=== PATIENT | male | born 1990 | race Asian ===

== ENCOUNTER 2021-04-03 04:05 | Outpatient (CLI) | payer OTHER, SELFPAY ==
[2021-04-03 11:08] LABS: ALT 28 U/L (16-63); AST 29 U/L (15-37); Albumin 4.8 g/dL (3.4-5.0); Alkaline Phosphatase 92 U/L (46-116); Anion Gap 7.7 mmol/L (3-11); BUN 14 mg/dL (7-18); Bilirubin, Total 1.3 mg/dL (0.2-1.0); CO2 30.3 mmol/L (21.0-32.0); CREATININE 1.1 mg/dL (0.70-1.30); Calcium 9.6 mg/dL (8.5-10.1); Calculated LDL 125 mg/dL (<100); Chloride 104 mmol/L (98-107); Cholesterol 215 mg/dL (<200); Glucose 97 mg/dL (74-106); HDL Cholesterol 39 mg/dL (40-60); Potassium 4.4 mmol/L (3.5-5.1); Sodium 142 mmol/L (136-145); Total Protein 8.2 g/dL (6.4-8.2); Triglyceride 255 mg/dL (<150)
== END 2021-04-03 04:06 | disposition home or self-care (01) ==
LOC: LBO 04:05
PROVIDERS: PCP Student in an Organized Health Care Education/Training Program; Visit Provider Student in an Organized Health Care Education/Training Program
DX: I10 Essential (primary) hypertension (principal); Z13.220 Encounter for screening for lipoid disorders
CPT/HCPCS: 36415; 80053; 80061

== ENCOUNTER 2021-08-24 02:48 | Outpatient (REF) | payer SELFPAY ==
[2021-08-25 13:06] LABS: Measles IgG Antibody Positive (See Note); Mumps Antibody IgG Negative (See Note); Rubella IgG Ab (UVM) Positive (See Note); Varicella IgG Antibody Negative (See Note)
== END 2021-08-24 02:49 | disposition home or self-care (01) ==
LOC: LBO 02:48
PROVIDERS: PCP Student in an Organized Health Care Education/Training Program; Visit Provider Student in an Organized Health Care Education/Training Program
DX: Z02.89 Encounter for other administrative examinations (principal)
CPT/HCPCS: 36415; 86787; 86735; 86762; 86765

== ENCOUNTER 2021-09-10 02:18 | Outpatient (CLI) | payer OTHER, SELFPAY ==
[2021-09-11 12:55] LABS: Syphilis Serology (RPR) Negative (Negative)
[2021-09-11 15:21] LABS: Chlamydia Result Negative (Negative); GC Result Negative (Negative)
[2021-09-14 13:20] LABS: TB Interpretation Negative (Negative); TB2 Ag minus Nil 0.01 IU/mL
== END 2021-09-10 02:19 | disposition home or self-care (01) ==
LOC: LBO 02:18
PROVIDERS: PCP Student in an Organized Health Care Education/Training Program; Visit Provider Student in an Organized Health Care Education/Training Program
DX: Z20.1 Contact with and (suspected) exposure to tuberculosis (principal); Z20.2 Contact with and (suspected) exposure to infections with a predominantly sexual mode of transmission; Z11.3 Encounter for screening for infections with a predominantly sexual mode of transmission
CPT/HCPCS: 36415; 87491; 87591; 86480; 86592

== ENCOUNTER 2022-01-29 02:33 | Outpatient (CLI) | payer OTHER, SELFPAY ==
[2022-01-29 09:44] LABS: Anion Gap 8.9 mmol/L (3-11); BUN 13 mg/dL (7-18); CO2 30.1 mmol/L (21.0-32.0); Calcium 9.3 mg/dL (8.5-10.1); Calculated LDL 176 mg/dL (<100); Chloride 102 mmol/L (98-107); Cholesterol 248 mg/dL (<200); Glucose 99 mg/dL (74-106); HDL Cholesterol 43 mg/dL (40-60); Potassium 4.2 mmol/L (3.5-5.1); Sodium 141 mmol/L (136-145); Triglyceride 149 mg/dL (<150)
[2022-02-01 15:02] LABS: Chlamydia Result Negative (Negative); GC Result Negative (Negative)
== END 2022-01-29 02:34 | disposition home or self-care (01) ==
LOC: LBO 02:33
PROVIDERS: PCP Student in an Organized Health Care Education/Training Program; Visit Provider Student in an Organized Health Care Education/Training Program
DX: Z13.220 Encounter for screening for lipoid disorders (principal); Z86.79 Personal history of other diseases of the circulatory system; Z20.2 Contact with and (suspected) exposure to infections with a predominantly sexual mode of transmission
CPT/HCPCS: 36415; 80048; 80061; 87491; 87591

== ENCOUNTER 2022-08-14 19:50 | Outpatient (REF) | payer OTHER, SELFPAY ==
[2022-08-14 20:00] LABS: Anion Gap 10.3 mmol/L (3-11); BUN 15 mg/dL (7-18); CO2 27.7 mmol/L (21.0-32.0); Calcium 9.1 mg/dL (8.5-10.1); Calculated LDL 112 mg/dL (<100); Chloride 103 mmol/L (98-107); Cholesterol 201 mg/dL (<200); Estimated GFR 103.19 (mL/min/1.73m2); Glucose 115 mg/dL (74-106); HDL Cholesterol 37 mg/dL (40-60); Potassium 3.2 mmol/L (3.5-5.1); Sodium 141 mmol/L (136-145); Triglyceride 261 mg/dL (<150)
== END 2022-08-14 19:51 | disposition home or self-care (01) ==
LOC: NCHCN 19:50
PROVIDERS: PCP Student in an Organized Health Care Education/Training Program; Visit Provider Student in an Organized Health Care Education/Training Program
DX: R79.89 Other specified abnormal findings of blood chemistry (principal); I10 Essential (primary) hypertension; Z13.220 Encounter for screening for lipoid disorders
CPT/HCPCS: 80048; 80061

== ENCOUNTER 2023-09-16 01:04 | Outpatient (CLI) | payer OTHER, SELFPAY ==
[2023-09-16 09:22] LABS: Anion Gap 2.9 mmol/L (3-11); BUN 13 mg/dL (7-18); CO2 30.1 mmol/L (21.0-32.0); CREATININE 0.9 mg/dL (0.70-1.30); Calcium 8.7 mg/dL (8.5-10.1); Calculated LDL 136 mg/dL (<100); Chloride 104 mmol/L (98-107); Cholesterol 210 mg/dL (<200); Estimated GFR 116.37 (mL/min/1.73m2); Glucose 103 mg/dL (74-106); HDL Cholesterol 44 mg/dL (40-60); Magnesium 1.9 mg/dL (1.8-2.4); Potassium 4.2 mmol/L (3.5-5.1); Sodium 137 mmol/L (136-145); Triglyceride 154 mg/dL (<150)
== END 2023-09-16 01:05 | disposition home or self-care (01) ==
LOC: LBO 01:04
PROVIDERS: PCP Student in an Organized Health Care Education/Training Program; Referring Provider Student in an Organized Health Care Education/Training Program; Visit Provider Student in an Organized Health Care Education/Training Program
DX: E87.6 Hypokalemia (principal); I10 Essential (primary) hypertension; Z82.49 Family history of ischemic heart disease and other diseases of the circulatory system; Z83.3 Family history of diabetes mellitus; Z91.89 Other specified personal risk factors, not elsewhere classified
CPT/HCPCS: 36415; 80048; 80061; 83735